=== PATIENT | female | born 1940 | race Two or more races ===

== ENCOUNTER → 2024-07-12 | Emergency (ER) | payer OTHER | END | disposition left against medical advice (07) | LOC: ER 07:11 | DX: Z53.21 Procedure and treatment not carried out due to patient leaving prior to being seen by health care provider (principal) ==

== ENCOUNTER 2024-07-15 19:48 | Emergency (ER) | payer OTHER ==
[~2024-07-15] VITALS: Ht 154.9 cm; Wt 56.7 kg
[2024-07-15] MEDS ORDERED: PREDNISONE10 M2 PO (20:24)
[2024-07-15] MEDS ORDERED: PAROXETINE HCL25 MG PO (20:25)
[2024-07-15] MEDS ORDERED: FOLIC ACID1 MG PO (20:25)
[2024-07-15] MEDS ORDERED: 0.9 % SODIUM CHLORIDE 1,000 ML IV SCH (21:45)
[2024-07-15 23:37] LABS: BASO % 0.2 % (0.1-1.2); EOS # 0.01 (0.04-0.54); EOS % 0.2 % (0.7-7.0); LYMPH # 1.36 (1.18-3.74); LYMPH % 25.1 % (19.3-53.1); MONO # 0.39 (0.24-0.82); MONO % 7.2 % (4.7-12.5); NEUT # 3.57 (1.56-6.13); NEUT % 65.8 % (34.0-71.1); PLATELET COUNT 210 K/uL (163-369); RED BLOOD COUNT 2.37 M/uL (3.93-5.22); RED CELL DISTRIBUTION WIDTH 17.2 % (11.6-14.4)
[2024-07-15 23:39] LABS: HEMATOCRIT 25.3 % (34.1-44.9)
[2024-07-16 00:10] LABS: INR 0.95; PARTIAL THROMBOPLASTIN TIME 20.2 SECONDS (22.0-34.0); PROTHROMBIN TIME 10.4 SECONDS (9.0-11.5)
[2024-07-16 00:14] LABS: ALBUMIN 4.2 gm/dL (3.4-5.0); BILIRUBIN TOTAL 3.2 mg/dL (0.3-1.2); CALCIUM 9.2 mg/dL (8.5-10.1); CREATININE SERUM 0.57 mg/dL (0.55-1.02); GFR 101.3; GLOBULINA 2.2 G/DL (2.4-3.5); POTASSIUM 5.59 mEq/L (3.5-5.1); TOTAL PROTEIN 6.4 gm/dL (6.4-8.2)
== END 2024-07-16 00:38 | disposition home or self-care (01) ==
LOC: ER 20:13
PROVIDERS: General Practice
DX: D64.9 Anemia, unspecified (principal)
CPT/HCPCS: 36415; 96365; 96366; 99282; J7030